=== PATIENT | male | born 1980 | race African-American/Black ===

== ENCOUNTER 2019-04-27 05:08 | Emergency (ER) | payer SELFPAY ==
[~2019-04-27] VITALS: Ht 182.9 cm; Wt 63.0 kg
[2019-04-27] MEDS ORDERED: IBUPROFEN 600MG TABLET PO ONE (06:30)
[2019-04-27 06:55] LABS: HEMATOCRIT. 39.5 % (42.0-52.0); HEMOGLOBIN. 13.2 g/dL (14.0-18.0); MEAN CORPUSCULAR HEMOGLOBIN 32.7 pg (28.0-32.0); MEAN CORPUSCULAR VOLUME 97.6 fL (80.0-94.0); PLATELET 281 x1000/uL (130-400); RED BLOOD CELL COUNT 4.05 mill/uL (4.7-6.1); RED CELL DISTRIBUTION WIDTH 13.5 % (11.6-14.6)
[2019-04-27 06:59] LABS: CHLORIDE 105 mEq/L (98-107)
[2019-04-27 07:02] LABS: ETHANOL BLOOD < 10 mg/dL
[2019-04-27 07:30] LABS: CLARITY URINE CLEAR (CLEAR); COLOR URINE YELLOW (YELLOW); KETONES URINE NEGATIVE (NEGATIVE); LEUKOCYTE ESTERASE URINE NEGATIVE (NEGATIVE); NITRITE URINE NEGATIVE (NEGATIVE); OCCULT BLOOD URINE NEGATIVE (NEGATIVE); PROTEIN URINE 2+ (NEGATIVE); SPECIFIC GRAVITY URINE 1.017 (1.005-1.030); UROBILINOGEN URINE 0.2 E.U./dL (0.2-1.0)
[2019-04-27 07:39] LABS: PLATELET ESTIMATE NORMAL
[2019-04-27 07:47] LABS: *AMPHETAMINES SCREEN URINE PRESUMTIVE POSITIVE (NEGATIVE); *BARBITURATES SCREEN URINE NEGATIVE (NEGATIVE); *BENZODIAZEPINES SCREEN URINE NEGATIVE (NEGATIVE)
[2019-04-27 07:48] LABS: *COCAINE SCREEN URINE PRESUMTIVE POSITIVE (NEGATIVE); METHADONE URINE SCREEN NEGATIVE (NEGATIVE); OPIATES URINE SCREEN NEGATIVE (NEGATIVE); PHENCYCLIDINE URINE SCREEN NEGATIVE (NEGATIVE)
[2019-04-27 07:49] LABS: CANNABINOID URINE SCREEN NEGATIVE (NEGATIVE)
[2019-04-27 13:40] VITALS: BP 134/91
== END 2019-04-27 14:12 | disposition home or self-care (01) ==
LOC: ER 05:08
DX: F15.10 Other stimulant abuse, uncomplicated (principal); F14.10 Cocaine abuse, uncomplicated; M54.9 Dorsalgia, unspecified; R07.81 Pleurodynia; R53.83 Other fatigue; Z59.0 Homelessness
CPT/HCPCS: 36415; 80048; 80305; 80307; 80320; 80329; 81003; 85025; 99283; Z7610; G0480